=== PATIENT | male | born 1995 | race Two or more races ===

== ENCOUNTER 2017-06-19 10:53 | Day surgery (SDC) | payer OTHER ==
[2017-06-17 15:56] VITALS: BMI 31.0
--- NOTE | 2017-06-19 13:41 | HP ---
History & Physical Update - History History: No Change - Physical Physical: No Change - Assessment Assessment: No Change - Plan Plan: No Change
--- NOTE | 2017-06-19 13:43 | OP ---
Operative Note - Note: Operative Date: 06/19/17 Pre-Operative Diagnosis: R ureteral calculus Operation: R ureteroscopy and JJ stent insertion Findings: R ureteral calculus Post-Operative Diagnosis: Same as Pre-op Surgeon: Altaf Manzano Anesthesiologist/REGIONAL ENVIRONMENTAL MANAGER: Noemi Burciaga Anesthesia: General Drains & Tubes with Location: 6 fr 24 cm R JJ stent Operative Report Dictated: Yes
[2017-06-19] MEDS ORDERED: PROPOFOL 20 ML ONE ×2 (14:04)
[2017-06-19] MEDS ORDERED: DEXAMETHASONE SOD PHOSPHATE 4 MG/1 ML VIAL ONE (14:04)
[2017-06-19] MEDS ORDERED: LIDOCAINE HCL/PF 2% SDV 5ML VIAL ONE (14:04)
[2017-06-19] MEDS ORDERED: ceFAZolin SODIUM 1 GM VIAL ONE (14:17)
[2017-06-19] MEDS ORDERED: ceFAZolin SODIUM 1 GM VIAL IVPB ONE (14:22)
[2017-06-19] MEDS ORDERED: oxyCODONE HCL 5 MG TABLET PO PRN ×2 (15:17)
[2017-06-19] MEDS ORDERED: ONDANSETRON 4 MG/2 ML VIAL IVPUSH PRN (15:17)
[2017-06-19] MEDS ORDERED: LACTATED RINGERS SOLUTION 1,000 ML IV SCH (15:30)
[2017-06-19 16:51] VITALS: TEMP 97.7
[2017-06-19 18:21] VITALS: BP 128/80; PULSE 78
--- NOTE | 2017-06-20 07:52 | OP ---
DATE OF OPERATION: 06/19/2017 PREOPERATIVE DIAGNOSIS: Right ureteral calculus. POSTOPERATIVE DIAGNOSIS: Right ureteral calculus (passed). PROCEDURE: Cystoscopy, right ureteroscopy, right double-J stent insertion. SURGEON: Altaf Manzano MD DIETARY TECH: None. ANESTHESIA: General via laryngeal mask. ANESTHESIOLOGIST: Noemi Burciaga MD SPECIMENS: None. CULTURES: None. DRAINS: A 6-Polish 24-cm right double-J stent. ESTIMATED BLOOD LOSS: None. COMPLICATIONS: None. DESCRIPTION OF PROCEDURE: Patient brought in the operating room, placed on the operating table in supine position. After the administration of general anesthesia via laryngeal mask, intravenous antibiotics were administered. Sequential compression devices were placed. The patient was placed in the dorsal lithotomy position. The perineum and genitals were prepped and draped in usual sterile manner. A 22-Polish cystoscope was inserted into the anterior urethra under direct vision. The anterior urethra was normal. The prostatic urethra was normal. The bladder was entered and thoroughly inspected. There were no foreign bodies, tumors, stones, inflammation. Both ureteral orifices were in their usual location with clear efflux bilaterally. The right ureteral orifice was now cannulated with a 0.038 guidewire which was advanced to the level of the right renal pelvis under fluoroscopic and direct visual guidance. A second guidewire was passed, and now the cystoscope removed. Dual-lumen catheter was inserted first, and then the second wire was passed. Dual-lumen catheter was removed. Then, the flexible ureteroscope was attempted to be inserted over the safety wire. However, would not go beyond the ureteral orifice. Now, the dual-lumen was inserted, and the orifice was dilated. Now, using the semi-rigid ureteroscope, the ureteroscope was inserted and advanced to the level of the proximal ureter where no stones were seen. There appeared to be a stricture. The scope could not be advanced all the way to the ureteropelvic junction but was advanced to approximately L1 or L2 level. The entire course of the ureter distal to this was now re-inspected. No stones were seen. The flexible ureteroscope was now inserted over the safety wire and also could only be advanced to the level of the proximal ureter, could not get to the ureteropelvic junction. The entire course of the ureter was re-inspected. No stones were seen. Now, the cystoscope was backloaded, and a 6-Polish 24-cm right double-J stent was inserted over the guidewire after retrograde pyelogram demonstrated no extravasation, mild right hydronephrosis. The double-J stent was placed under fluoroscopic and direct visual guidance, leaving 1 coil in the renal pelvis and 1 coil in the bladder. The bladder was emptied, cystoscope removed. The stent was secured to the penis with its suture and a Tegaderm. He tolerated the procedure well, transferred to the recovery room in stable condition. PLAN: Consider ESWL or repeat CAT scan to see if stone has passed. Carmine [id number]
== END 2017-06-19 17:50 | disposition home or self-care (01) ==
LOC: JASU-SURG 10:53
PROVIDERS: ATTEND Urology
PROC: 0T9680Z Drainage of Right Ureter with Drainage Device, Via Natural or Artificial Opening Endoscopic (ICD-10-PCS; principal; 2017-06-19 13:30)
DX: N20.1 Calculus of ureter (principal)
CPT/HCPCS: 76000-TC; 94760